=== PATIENT | female | born 1995 | race Caucasian/White ===

== ENCOUNTER 2016-12-26 18:53 | Inpatient (IN) | payer OTHER, BC ==
[~2016-12-26] VITALS: Ht 167.6 cm; Wt 111.4 kg
--- NOTE | ~2016-12-26 | OR ---
PATIENT'S NAME: [facility] AGE: 21 Y [address] ROOM: [place] [id number] LOCATION: GOBS ADMIT DATE: 12/26/2016 OR/Procedure Report DISCHARGE DATE: FAMILY PHYSICIAN: Ina Campbell PA-C ATTENDING PHYSICIAN: Sherry Ramos SURGEON: Sherry Ramos MD STAFF [employer] OFFICER: DATE OF PROCEDURE: 12/27/2016 PREOPERATIVE DIAGNOSES: 1. Intrauterine at 40 weeks and 3 days. 2. Gestational hypertension. POSTOPERATIVE DIAGNOSES: 1. Intrauterine at 40 weeks and 3 days. 2. Gestational hypertension. PROCEDURE: Spontaneous vaginal delivery. ESTIMATED BLOOD LOSS: 300 mL. ANESTHESIA: Epidural. FINDINGS: Female infant. score 8 and 9. Weight 9 pounds 3 ounces. Intact placenta. Three-vessel cord. Second-degree perineal laceration. Clear amniotic fluid. INDICATIONS: This patient is a 21-year-old G1 female who was 40 weeks and 3 days gestation, who was induced for gestational hypertension. She had 2 doses of gel followed by Pitocin. Once she had active labor, she progressed faster than normal to complete. She underwent expulsive efforts for about 45 minutes. PROCEDURE: With expulsive effort, the head delivered over an intact perineum. The rest of fetus delivered. The nose and mouth were bulb suctioned. Cord was clamped and cut. The was handed to awaiting team. Cord blood was drawn. The placenta delivered with manual traction. Cervix, vagina, and perineum were examined. A second-degree perineal laceration was noted and repaired in standard fashion with Vicryl suture. COMPLICATIONS: None. CONDITION: Mom stable in room. to [facility]. PATIENT'S NAME: [facility] AGE: 21 Y [address] ROOM: [address] [address] LOCATION: GOBS ADMIT DATE: 12/26/2016 OR/Procedure Report DISCHARGE DATE: FAMILY PHYSICIAN: Ina Campbell PA-C ATTENDING PHYSICIAN: Sherry Ramos MD ANDRIY SHAH/modl /[id number] d: 12/27/16 2310 t: 12/29/16 0941, OPERATIVE SUMMARY
[~2016-12-26 18:53] MED LIST: PRENATAL 1+1)(P1 TAB PO; TOPROL XL25 MG PO
[2016-12-26 20:43] LABS: BASOPHIL % 0.1 %; EOSINOPHIL % 0.3 %; HEMATOCRIT 33.6 % (33.0-46.0); HEMOGLOBIN 11.4 g/dL (11.0-15.0); IMMATURE GRANULOCYTE % 0.3 %; LYMPHOCYTE % 27.4 %; MCH 30.1 pg (27.0-34.0); MCHC 33.9 gm/dL (32.0-36.5); MCV 88.7 fl (83.0-98.0); MONOCYTE # 0.5 K/uL (0.0-1.0); MONOCYTE % 6.5 %; MPV 11.4 fl (9.4-12.4); NEUTROPHIL # (ANC) 4.8 K/uL (1.8-7.8); NEUTROPHIL % 65.4 %; NRBC % 0 /100WBC (0-0.00); PLATELET COUNT 199 K/uL (150-450); RBC 3.79 M/uL (3.50-5.00); RDW-CV 12.6 % (11.9-14.6); WBC 7.3 K/uL (4.0-11.0)
[2016-12-26 20:59] LABS: ALBUMIN 2.8 gm/dL (3.5-5.0); ALK PHOS 199 IU/L (33-138); ALT 20 IU/L (12-78); ANION GAP 14.6 (10.0-19.0); AST 16 IU/L (10-40); BLOOD UREA NITROGEN 9 mg/dL (6-24); CALCIUM 8.9 mg/dL (8.5-10.5); CHLORIDE 111 mMol/L (96-110); CO2 20 mMol/L (22-32); CREATININE 0.7 mg/dL (0.5-1.1); ESTIMATED GFR (MDRD EQUATION) > 60; POTASSIUM 3.6 mMol/L (3.7-5.1); SODIUM 142 mMol/L (135-145); TOTAL BILIRUBIN 0.3 mg/dL (0.0-1.5); TOTAL PROTEIN 6.5 g/dL (6.0-8.4)
[2016-12-28 04:36] LABS: BASOPHIL % 0.2 %; EOSINOPHIL % 0.3 %; HEMATOCRIT 29.4 % (33.0-46.0); HEMOGLOBIN 9.9 g/dL (11.0-15.0); IMMATURE GRANULOCYTE % 0.3 %; LYMPHOCYTE # 2.4 K/uL (0.8-4.0); LYMPHOCYTE % 23.1 %; MCH 30.4 pg (27.0-34.0); MCHC 33.7 gm/dL (32.0-36.5); MCV 90.2 fl (83.0-98.0); MONOCYTE # 0.9 K/uL (0.0-1.0); MONOCYTE % 8.6 %; MPV 11.1 fl (9.4-12.4); NEUTROPHIL # (ANC) 7.1 K/uL (1.8-7.8); NEUTROPHIL % 67.5 %; NRBC % 0 /100WBC (0-0.00); PLATELET COUNT 162 K/uL (150-450); RBC 3.26 M/uL (3.50-5.00); RDW-CV 12.8 % (11.9-14.6); WBC 10.5 K/uL (4.0-11.0)
--- NOTE | 2016-12-28 05:43 | NUR ---
VSS, FUNDUS FIRM, MID, SMALL FLOW, 1 PERC AND MOTRIN AT 0151, HX OF SVT- TOPROL DUE AT 0900, IV IN R HAND
--- NOTE | 2016-12-28 13:50 | NUR ---
Met patient at her bedside today. Introduced myself and the role of the CM department. This is the first child for patient and her and the first grandchild on both side of the family. Jami states they have all the necessary items at home for baby. She states that they have 2 insurances on baby. Notified her to contact both of their HR departments and/or insurance companies to inform them of [employer] . Discussed signs and symptoms of post depression and left her reading material on this topic. No other needs or concerns. Will follow and offer supports as needed.
--- NOTE | 2016-12-28 17:50 | NUR ---
Last VS: T:98.1 P:71 R: 18 BP: 117/64 Pain ratin-6 Last pain med: Motrin/PERCOCET Medicated at: 1055 Effective: Yes Breasts: SOFT/FILLING Nipples: INTACT/TENDER Fundus: FIRM Lochia: SMALL Epis/Perineum: ML epis w/ 2ND TEAR.~ APPROX. Voiding well: Y Significant event: *.UP AD [place], TOOK [employer] BATH & SHOWER AFTER LUNCH, FRESH BED MADE. HAS BEEN WORKING WELL W/ BABY. TOLD MOM WE'D DO HEARING TEST/BP'S/& BABY'S WEIGHT IN THE NIGHT. 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
--- NOTE | 2016-12-29 05:15 | NUR ---
vss. voiding well and passing gas. fundus firm, -1, small flow. last had perc/mot at 1933. using lanolin. taking metroprolol QDAY, due at 0900. home today.
[2016-12-29] MEDS ORDERED: DERMOPLAST SPRA56 GM TOP (10:55)
[2016-12-29] MEDS ORDERED: MOTRIN800 MG PO (10:55)
[2016-12-29] MEDS ORDERED: PERCOCET 5-3251 EACH PO (10:56)
== END 2016-12-29 17:00 | disposition disaster alternative care site (69) | DRG 774 ==
LOC: GOBM 18:53 → GOBS 18:53 → GOBM 18:55 → GOBS 12-29 17:00
PROVIDERS: Obstetrics & Gynecology; ADMIT Obstetrics & Gynecology
DX: O13.4 Gestational [pregnancy-induced] hypertension without significant proteinuria, complicating childbirth (principal); O99.42 Diseases of the circulatory system complicating childbirth; I47.2 Ventricular tachycardia; O99.824 Streptococcus B carrier state complicating childbirth; O70.1 Second degree perineal laceration during delivery; Z3A.40 40 weeks gestation of pregnancy; Z37.0 Single live birth
CPT/HCPCS: J2001; J2405; J2540; J2590; J3010; J7120